=== PATIENT | male | born 1945 | race Caucasian/White ===

== ENCOUNTER 2016-09-09 22:30 | Emergency (ER) | payer OTHER ==
[2016-09-09 22:38] VITALS: BP 163/98; TEMP 98.6; BMI 23.6
--- NOTE | 2016-09-09 22:49 | ED.PDOC ---
General ED Provider: Dr. GHADA MOORE Chief Complaint: Foreign Body in Ear Stated Complaint: Part of the earing aid is stuck in the left ear, Time Seen by Physician: 22:50 Mode of Arrival: Walk-In Information Source: Patient Primary Care Provider: WANG GAITAN Nursing and Triage Documentation Reviewed and Agree: Yes EENT Complaint Exam - Ear Complaint/Exam Symptoms Are: Still present Timing: Constant Initial Severity: Mild Current Severity: Mild Character: Reports: Unable to describe Aggravating: Reports: Foreign body Alleviating: Reports: None Associated Signs and Symptoms: Denies: Ear trauma, Ear swelling, Discharge, Fever, Hearing loss, Bleeding, Sore throat, Headache, URI symptoms, Foreign body sensation, Rash, Pain to external ear, Pain to external face Ear Surgical History: None Differential Diagnoses: Foreign Body Review of Systems - Review Of Systems Constitutional: Reports: No symptoms Eyes: Reports: No symptoms Ears, Nose, Mouth, Throat: Reports: Ear pain Respiratory: Reports: No symptoms Cardiac: Reports: No symptoms GI: Reports: No symptoms : Reports: No symptoms Musculoskeletal: Reports: No symptoms Skin: Reports: No symptoms Neurological: Reports: No symptoms Endocrine: Reports: No symptoms Hematologic/Lymphatic: Reports: No symptoms All Other Systems: Reviewed and Negative Past Medical History - Past Medical History Previously Healthy: No Endocrine: Reports: Hyperthyroid Cardiovascular: Reports: None Respiratory: Reports: None Hematological: Reports: None Gastrointestinal: Reports: None Genitourinary: Reports: None Neuro/Psych: Reports: None Musculoskeletal: Reports: None Cancer: Reports: None - Surgical History General Surgical History: Reports: None - Family History Family History: Reports: None - Social History Smoking Status: Never smoker Hx Substance Use: No Alcohol Screening: None - Immunizations Tetanus Shot up to Date: Yes Physical Exam - Physical Exam Appearance: Well-appearing, No pain distress, Well-nourished Eyes: YAJAIRA, EOMI, Conjunctiva clear ENT: Ears normal (with aligator forecep the FB is removed), Nose normal, Oropharynx normal Respiratory: Airway patent, Breath sounds clear, Breath sounds equal, Respirations nonlabored Cardiovascular: RRR, Pulses normal, No rub, No murmur GI/: Soft, Nontender, No masses, Bowel sounds normal, No Organomegaly Musculoskeletal: Normal strength, ROM intact, No edema, No calf tenderness Skin: Warm, Dry, Normal color Neurological: Sensation intact, Motor intact, Reflexes intact, Cranial nerves intact, Alert, Oriented Psychiatric: Affect appropriate, Mood appropriate Critical Care Note - Critical Care Note Total Time (mins): 0 Course - Course Vital Signs: Temp Pulse Resp BP Pulse Ox 09/09/16 22:31 98.6 F 60 18 163/98 H 98 Departure - Departure Time of Disposition: 22:48 Disposition: HOME SELF-CARE Discharge Problem: Foreign body in ear Qualifiers: Encounter type: initial encounter Laterality: left Qualifier Code: (T16.2XXA) Foreign body in left ear, initial encounter Instructions: Ear Foreign Body (ED) Condition: Stable Pt referred to PMD for follow-up: Yes Additional Instructions: Have f/u with ENT Allergies/Adverse Reactions: Allergies No Known Allergies Allergy (Verified 09/09/16 22:37) Home Medications: Ambulatory Orders Aspirin [Aspirin Chewable] 81 mg PO DAILYWM 12/03/13 Lisinopril [Zestril] 40 mg PO BID 12/03/13 Disposition Discussed With: Patient
== END 2016-09-09 23:05 | disposition home or self-care (01) ==
LOC: ED 22:30
DX: T16.2XXA Foreign body in left ear, initial encounter (principal)
CPT/HCPCS: 99283

== ENCOUNTER 2016-10-08 11:37 | Outpatient (CLI) ==
--- NOTE | 2016-10-08 13:43 | DI ---
EXAM: PA and lateral views of the chest HISTORY: Bronchitis COMPARISON: Chest x-ray 11/08/2008 FINDINGS: The cardiomediastinal silhouette is normal. There is no pneumothorax or pleural effusion . There is no consolidation, nodule or mass. Calcified granuloma in the left lung is present. The re is unchanged hyperinflation. The osseous structures are stable. IMPRESSION: 1. No acute cardiopulmonary process or consolidation. 2. Hyperinflation consistent with chronic obstructive pulmonary disease.
== END 2016-10-08 11:38 | disposition home or self-care (01) ==
LOC: RAD 11:37
PROVIDERS: ATTEND Family Medicine
DX: J40 Bronchitis, not specified as acute or chronic (principal)

== ENCOUNTER 2016-11-22 10:48 | Emergency (ER) | payer OTHER ==
[2016-11-22 10:49] VITALS: BMI 23.6
[2016-11-22 10:52] VITALS: BP 158/94; TEMP 97.6
[2016-11-22] MEDS ORDERED: NITROSTAT SL PRN (10:52)
[2016-11-22] MEDS ORDERED: ASPIRIN CHEWABLE PO STA (10:53)
--- NOTE | 2016-11-22 10:54 | ED.PDOC ---
General ED Provider: Dr. MARITZA KRAUSE JR Chief Complaint: Chest Pain Stated Complaint: "Dileep"MIDSTERNAL CHEST PAIN RADIATING TO RIGHT JAW. WAS RIDING TRACTOR WHEN IT STARTED. NOW HAS HEADACHE. CHEST PAIN IS EASING UP NOW. WARM AND DIAPHORETIC [ End ] Time Seen by Physician: 10:54 Mode of Arrival: Police Information Source: Patient Exam Limitations: No limitations Primary Care Provider: WANG GAITAN Nursing and Triage Documentation Reviewed and Agree: No Review of Systems - Review Of Systems Constitutional: Reports: No symptoms Eyes: Reports: No symptoms Ears, Nose, Mouth, Throat: Reports: No symptoms Respiratory: Reports: No symptoms Cardiac: Reports: Chest pain (into right jaw) GI: Reports: No symptoms (tender left lower quadrant no constip) : Reports: No symptoms Musculoskeletal: Reports: No symptoms Skin: Reports: No symptoms Neurological: Reports: No symptoms Endocrine: Reports: No symptoms Hematologic/Lymphatic: Reports: No symptoms All Other Systems: Other Past Medical History - Past Medical History Previously Healthy: No Endocrine: Reports: Hyperthyroid Cardiovascular: Reports: Hypertension Respiratory: Reports: None Hematological: Reports: None Gastrointestinal: Reports: GERD Genitourinary: Reports: None Neuro/Psych: Reports: None Musculoskeletal: Reports: None Cancer: Reports: None Other Pertinent Past Medical History: prostate - Surgical History General Surgical History: Reports: None, Heart Cath (HEART CATH X 2 = NEGATIVE FINDINGS), Orthopedic (RIGHT LEG REPAIR WITH RODS AND PINS) - Family History Family History: Reports: None - Social History Smoking Status: Never smoker Hx Substance Use: No Alcohol Screening: None Physical Exam - Physical Exam Appearance: Well-appearing, Thin Pain Distress: Moderate Eyes: YAJAIRA, EOMI, Conjunctiva clear ENT: Ears normal, Nose normal, Oropharynx normal Neck: Supple Respiratory: Airway patent, Breath sounds clear, Breath sounds equal, Respirations nonlabored Cardiovascular: RRR, Pulses normal, No rub, No murmur GI/: Soft, No masses, Bowel sounds normal, No Organomegaly, Tender Musculoskeletal: Normal strength, ROM intact, No edema, No calf tenderness Skin: Warm, Dry, Normal color Neurological: Sensation intact, Motor intact, Reflexes intact, Cranial nerves intact, Alert, Oriented Psychiatric: Affect appropriate, Mood appropriate Interpretation - Radiology Interpretation Radiology Interpretation By: Radiologist Radiology Results: Negative Exam Interpreted: CXR - EKG Interpretation Time of EKG #1: 11:04 Rate: Normal Rhythm: Sinus Ectopy: None [place]: NL ST Segment: Normal Physician Notification - Case Discussed Physician Notified: lauri Time of Notification: 12:14 Critical Care Note - Critical Care Note Total Time (mins): 5 Course - Course Hematology/Chemistry: 11/22/16 11:00 11/22/16 11:00 Orders, Labs, Meds: Lab Review 11/22/16 11:00 WBC 6.53 RBC 4.25 L Hgb 13.4 L Hct 39.6 L MCV 93.2 MCH 31.5 H MCHC 33.8 RDW Coeff of [place]ij[place] 13.9 Plt Count 206 Immature Gran % (Auto) 0.3 Neut % (Auto) 64.1 Lymph % (Auto) 23.9 [place] % (Auto) 10.3 H Eos % (Auto) 1.1 Baso % (Auto) 0.3 Immature Gran # (Auto) 0.0 Neut # 4.2 Lymph # 1.6 [place] # 0.7 Eos # 0.1 Baso # 0.0 D-Dimer (Manual) 414.15 Sodium 141 Potassium 3.9 Chloride 109 H Carbon Dioxide 23 Anion Gap 12.9 BUN 15 Creatinine 1.14 H Estimated GFR (MDRD) 64.00 BUN/Creatinine Ratio 13.15 Glucose 80 L Lactic Acid 8.4 Calcium 9.6 Total Bilirubin 0.47 AST 16 ALT 15 Alkaline Phosphatase 55 L Total Creatine Kinase 91 Troponin I < 0.0100 B-Natriuretic Peptide 64 Total Protein 6.9 Albumin 3.9 Globulin 3.0 Albumin/Globulin Ratio 1.30 Amylase 93 Lipase 23 Procalcitonin < 0.05 Orders Category Date Time Status EKG-(ED ONLY) Stat CARDIO 11/22/16 10:52 Completed ED APPLY O2 .ONCE EMERGENCY 11/22/16 10:52 Active ED JORDAN WORKER APPLIED .ONCE EMERGENCY 11/22/16 10:52 Active ED IV/MEDIPORT/POWERPORT .ONCE EMERGENCY 11/22/16 10:52 Active AMYLASE Stat LAB 11/22/16 11:00 Completed B-TYPE NATRIURETIC PEPTIDE Stat LAB 11/22/16 11:00 Completed CBC W/ AUTO DIFF Stat LAB 11/22/16 11:00 Completed COMPREHENSIVE METABOLIC PANEL Stat LAB 11/22/16 11:00 Completed CREATINE KINASE Stat LAB 11/22/16 11:00 Completed D-DIMER Stat LAB 11/22/16 11:00 Completed LACTIC ACID Stat LAB 11/22/16 11:00 Completed LIPASE Stat LAB 11/22/16 11:00 Completed PROCALCITONIN Stat LAB 11/22/16 11:00 Completed TROPONIN I Stat LAB 11/22/16 11:00 Completed URINALYSIS C & S IF INDICATED Stat LAB 11/22/16 10:55 Uncollected 0.9 % Sodium Chloride [Saline Flush] MEDS 11/22/16 10:52 Active 1 syr IVF PRN PRN Aspirin [Aspirin Chewable] MEDS 11/22/16 10:53 Discontinued 324 mg PO ONCE STA Nitroglycerin [Nitrostat] MEDS 11/22/16 10:52 Active 0.4 mg SL Q5MIN X 3 DOSES PRN CHEST, 1V AP ONLY Stat RADS 11/22/16 10:52 Completed Medications Generic Name Dose Route Start Last Admin Trade Name Freq PRN Reason Stop Dose Admin Nitroglycerin 0.4 mg 11/22/16 10:52 11/22/16 11:00 Nitrostat SL 0.4 mg Q5MIN X 3 DOSES PRN Administration Chest Pain Sodium Chloride 1 syr 11/22/16 10:52 Saline Flush IVF PRN PRN To flush IV Discontinued Medications Generic Name Dose Route Start Last Admin Trade Name Freq PRN Reason Stop Dose Admin Aspirin 324 mg 11/22/16 10:53 11/22/16 10:59 Aspirin Chewable PO 11/22/16 10:54 324 mg ONCE STA Administration Vital Signs: Temp Pulse Resp BP Pulse Ox 11/22/16 10:49 97.6 F 80 18 158/94 H 98 VICKI Risk Score VICKI Risk Score: Risk Score Odds of by 30D 0 0.1 (0.1-0.2) 1 0.3 (0.2-0.3) 2 0.4 (0.3-0.5) 3 0.7 (0.6-0.9) 4 1.2 (1.0-1.5) 5 2.2 (1.9-2.6) 6 3.0 (2.5-3.6) 7 4.8 (3.8-6.1) Departure - Departure Time of Disposition: 12:13 Disposition: TSF SHORT-TRM HOSP Discharge Problem: Chest pain Instructions: Chest Pain (ED) Condition: Fair Pt referred to PMD for follow-up: Yes (transfer latter-day) Allergies/Adverse Reactions: Allergies No Known Allergies Allergy (Verified 09/09/16 22:37) Home Medications: Ambulatory Orders Aspirin [Aspirin Chewable] 81 mg PO DAILYWM 12/03/13 Lisinopril [Zestril] 20 mg PO DAILY 12/03/13 Amlodipine Besylate [Norvasc] 5 mg PO DAILY 11/22/16 Pantoprazole Sodium [Protonix] 40 mg PO QDAC 11/22/16
[2016-11-22 11:08] LABS: BASOPHILS % (AUTO) 0.3 % (0.0-3.0); EOSINOPHILS # (AUTO) 0.1 K/ul (0.0-0.7); EOSINOPHILS % (AUTO) 1.1 % (0.0-7.0); HEMATOCRIT 39.6 % (42.0-52.0); HEMOGLOBIN 13.4 g/dl (14.0-18.0); IMMATURE GRANULOCYTE % (AUTO) 0.3 % (0.0-5.0); LYMPHOCYTES # (AUTO) 1.6 K/uL (0.60-3.4); LYMPHOCYTES % (AUTO) 23.9 (10.0-50.0); MEAN CORPUSCULAR HEMOGLOBIN 31.5 pg (27.0-31.0); MEAN CORPUSCULAR HGB CONC 33.8 (31.8-35.4); MEAN CORPUSCULAR VOLUME 93.2 fl (80.0-94.0); MONOCYTES # (AUTO) 0.7 K/uL (0.4-2.0); MONOCYTES % (AUTO) 10.3 (0-10); NEUTROPHILS # (AUTO) 4.2 K/ul (2.0-6.9); NEUTROPHILS % (AUTO) 64.1; PLATELET COUNT 206 10^3/uL (140-440); RED BLOOD COUNT 4.25 10^6/ul (4.70-6.10); WHITE BLOOD COUNT 6.53 K/ul (4.2-10.2)
--- NOTE | 2016-11-22 11:08 | DI ---
EXAM: Chest one view, frontal view only. HISTORY: Chest pain. COMPARISON: 10/08/2016. FINDINGS: The heart size is normal. There is no pulmonary vascular congestion. The lungs are german r save for calcified granulomatous changes. No pleural effusion or pneumothorax is seen. No acute osseous abnormality is identified. Since the prior study, there has been no significant interval ch barrie. IMPRESSION: No acute cardiopulmonary process.
[2016-11-22 11:34] LABS: ALANINE AMINOTRANSFERASE 15 U/L (12-78); ALBUMIN 3.9 g/dL (3.4-5.0); ALKALINE PHOSPHATASE 55 U/L (56-119); AMYLASE 93 U/L (25-115); ANION GAP 12.9; ASPARTATE AMINO TRANSFERASE 16 U/L (15-37); BILIRUBIN,TOTAL 0.47 mg/dL (0.00-1.20); BLOOD UREA NITROGEN 15 mg/dL (7-18); BUN/CREATININE RATIO 13.15; CALCIUM 9.6 mg/dL (8.2-10.2); CARBON DIOXIDE 23 mmol/L (23-31); CHLORIDE 109 mmol/L (98-107); CREATINE KINASE 91 U/L; CREATININE 1.14 mg/dL (0.60-1.10); GLUCOSE 80 mg/dL (82-115); LIPASE 23 U/L (8-78); POTASSIUM 3.9 mmol/L (3.5-5.1); SODIUM 141 mmol/L (136-145); TOTAL PROTEIN 6.9 g/dL (5.8-8.1)
== END 2016-11-22 12:53 | disposition short-term general hospital (02) ==
LOC: ED 10:48
DX: R07.9 Chest pain, unspecified (principal); I10 Essential (primary) hypertension; E05.90 Thyrotoxicosis, unspecified without thyrotoxic crisis or storm; R51 Headache; Z79.899 Other long term (current) drug therapy
CPT/HCPCS: 36415; 80053; 82150; 82550; 83605; 83690; 83880; 84145; 84484; 85025; 85379; 93005; 93010; 99285

== ENCOUNTER 2016-11-22 12:52 | Outpatient (CLI) ==
[2016-11-22 10:49] VITALS: BMI 23.6
== END 2016-11-22 12:53 ==
LOC: AMBL 12:52
PROVIDERS: ATTEND Emergency Medicine
DX: R07.9 Chest pain, unspecified (principal)

== ENCOUNTER 2017-03-09 11:26 | Outpatient (CLI) ==
--- NOTE | 2017-03-09 12:02 | DI ---
EXAM: RIGHT KNEE. HISTORY: Chronic right knee pain. FINDINGS: Right knee three-view. No comparison. There are three stabilization screws superimposed over the proximal tibia. There is subtle deformity of the lateral tibial plateau suggesting prior i njury. 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 There is no acute fracture or visible rolo int effusion. Bone density appears mildly decreased. Soft tissues within normal limits. IMPRESSION: Postop and arthritic changes. No acute findings.
== END 2017-03-09 11:27 | disposition home or self-care (01) ==
LOC: RAD 11:26
PROVIDERS: ATTEND Family Medicine
DX: M25.561 Pain in right knee (principal); G89.29 Other chronic pain

== ENCOUNTER 2017-04-15 11:34 | Emergency (ER) ==
[2017-04-15 11:39] VITALS: BP 171/93; TEMP 98.8; BMI 22.8
[2017-04-15] MEDS ORDERED: NORCO 10-325 PO STA (12:28)
--- NOTE | 2017-04-15 13:05 | DI ---
EXAM: LEFT SHOULDER HISTORY: Injury, pain FINDINGS: Left shoulder three-view. Bone and joint structures are within normal limits. There is no joint dislocation or fracture identified. Bone density and soft tissues are unremarkable. IMPRESSION: Within normal limits.
--- NOTE | 2017-04-15 13:06 | DI ---
EXAM: Three views of the left elbow. History: Left elbow pain and trauma. Findings: No acute fracture or dislocation. No abnormal calcifications or radiopaque foreign bodies . Impression: No acute abnormality
--- NOTE | 2017-04-15 13:07 | DI ---
EXAM: LEFT HUMERUS, 2 VIEWS HISTORY: Fall, arm pain FINDINGS: Left humerus AP and lateral views. Bone and joint structures appear normal. No fracture or joint dislocation is seen. There is no significant arthritic change, bone density abnormality or soft tissue finding. IMPRESSION: No fracture or dislocation.
--- NOTE | 2017-04-15 13:18 | ED.PDOC ---
General ED Provider: Dr. BIENVENIDO RUSSELL Chief Complaint: Shoulder Pain/Injury Stated Complaint: shoulder pain Time Seen by Physician: 11:45 (fall 4 feet from ladder no neck or back pain) Mode of Arrival: Walk-In Information Source: Patient Exam Limitations: No limitations Primary Care Provider: WANG GAITAN Nursing and Triage Documentation Reviewed and Agree: Yes (no head injury) Trauma/Injury Complaint Exam - Head Injury Complaint/Exam Location of Pain: Reports: Other (shoulder , elbow pain no neck or back pain or injury) Mechanism of Injury: Reports: Trauma (fall 4 feet no neck pain) Onset/Duration: 1 hr Symptoms Are: Still present Initial Severity: Moderate Current Severity: Moderate (injury and pain limited to left upper ext only) Aggravating: Reports: None Alleviating: Reports: None Associated Signs and Symptoms: Denies: Confusion, Memory loss, Seizure, Epistaxis, Dental malocclusion, Neck pain, Nausea, Vomiting Loss of Consciousness: None Related History: Reports: Similar episode SDH Risk Factors: Present: Male Cervical Spine Injury Risk Factors: Present: None Related Surgical History: Reports: None Immobilization Removed Post Exam: No Head Injury Findings: Present: Normal findings Glascow Coma Scale (see protocol): 15 Focal Weakness: Present: None Focal Sensory Loss: Present: None Gait: Normal Gag Reflex Present: Yes Finger to Nose: Normal Babinski Sign: Negative Right, Negative Left Nexus Low Risk Criteria: No post-midline CS tender, No evidence of intoxicat., No Altered LOC, No focal neuro deficit, No distracting injuries Differential Diagnoses: Sprain, Strain Review of Systems - Review Of Systems Constitutional: Reports: No symptoms Eyes: Reports: No symptoms Ears, Nose, Mouth, Throat: Reports: No symptoms Respiratory: Reports: No symptoms Cardiac: Reports: No symptoms GI: Reports: No symptoms : Reports: No symptoms Musculoskeletal: Reports: Other (left shoulder pain) Skin: Reports: No symptoms Neurological: Reports: No symptoms Endocrine: Reports: No symptoms Hematologic/Lymphatic: Reports: No symptoms All Other Systems: Reviewed and Negative Past Medical History - Past Medical History Previously Healthy: No Endocrine: Reports: Hyperthyroid Cardiovascular: Reports: Hypertension Respiratory: Reports: None Hematological: Reports: None Gastrointestinal: Reports: GERD Genitourinary: Reports: None Neuro/Psych: Reports: None Musculoskeletal: Reports: None Cancer: Reports: None Other Pertinent Past Medical History: prostate - Surgical History General Surgical History: Reports: None, Heart Cath (HEART CATH X 2 = NEGATIVE FINDINGS), Orthopedic (RIGHT LEG REPAIR WITH RODS AND PINS) - Family History Family History: Reports: None - Social History Smoking Status: Never smoker Hx Substance Use: No Alcohol Screening: None Physical Exam - Physical Exam Appearance: Well-appearing, No pain distress, Well-nourished Eyes: YAJAIRA, EOMI, Conjunctiva clear ENT: Ears normal, Nose normal, Oropharynx normal Respiratory: Airway patent, Breath sounds clear, Breath sounds equal, Respirations nonlabored Cardiovascular: RRR, Pulses normal, No rub, No murmur GI/: Soft, Nontender, No masses, Bowel sounds normal, No Organomegaly Musculoskeletal: Normal strength, ROM intact, No edema, No calf tenderness Skin: Warm, Dry, Normal color Neurological: Sensation intact, Motor intact, Reflexes intact, Cranial nerves intact, Alert, Oriented Psychiatric: Affect appropriate, Mood appropriate Critical Care Note - Critical Care Note Total Time (mins): 0 Course - Course Orders, Labs, Meds: Orders Category Date Time Status Hydrocodone Bit/Acetaminophen [[place] 10-325] MEDS 04/15/17 12:28 Discontinued 1 tab PO ONCE STA ELBOW, LEFT MIN 3 VIEWS Stat RADS 04/15/17 12:32 Completed HUMERUS, LEFT 2VIEWS Stat RADS 04/15/17 12:32 Completed SHOULDER, LEFT MIN 2V Stat RADS 04/15/17 12:32 Completed Medications Discontinued Medications Generic Name Dose Route Start Last Admin Trade Name Freq PRN Reason Stop Dose Admin Acetaminophen/Hydrocodone Bitart 1 tab 04/15/17 12:28 [place] 10-325 PO 04/15/17 12:29 ONCE STA Vital Signs: Temp Pulse Resp BP Pulse Ox 04/15/17 11:35 98.8 F 60 20 171/93 H 98 Departure - Departure Time of Disposition: 13:19 Disposition: HOME SELF-CARE Discharge Problem: Shoulder pain, Injury of shoulder region Rotator cuff injury Qualifiers: Encounter type: initial encounter Instructions: Shoulder Sprain (ED), Rotator Cuff Injury (ED) Condition: Good Pt referred to PMD for follow-up: Yes Additional Instructions: Please call your Family Physician as soon as possible to schedule a follow-up appointment. Allergies/Adverse Reactions: Allergies No Known Allergies Allergy (Verified 04/15/17 11:39) Home Medications: Ambulatory Orders Aspirin [Aspirin Chewable] 81 mg PO DAILYWM 12/03/13 Lisinopril [Zestril] 5 mg PO DAILY 12/03/13 Pantoprazole Sodium [Protonix] 40 mg PO QDAC 11/22/16 Meloxicam [Mobic] 7.5 mg PO DAILY 04/15/17
== END 2017-04-15 13:33 | disposition home or self-care (01) ==
LOC: ED 11:34
DX: M25.512 Pain in left shoulder (principal); M25.522 Pain in left elbow; W11.XXXA Fall on and from ladder, initial encounter
CPT/HCPCS: 99283

== ENCOUNTER 2018-11-13 20:39 | Emergency (ER) | payer OTHER ==
[2018-11-13 20:42] VITALS: BP 135/87; TEMP 98.2; BMI 22.6
[2018-11-13] MEDS ORDERED: SODIUM CHLORIDE 1,000 ML IV STA ×2 (20:51)
[2018-11-13] MEDS ORDERED: ZOFRAN 4 MG/2 ML IVP STA (20:51)
--- NOTE | 2018-11-13 21:24 | CT ---
EXAM: CT of the abdomen and pelvis without contrast. HISTORY: Abdominal pain. PROCEDURE: Contiguous axial CT images of the abdomen and pelvis without contrast with coronal and sa gittal reformats. FINDINGS: The liver is normal in appearance. There is a gallstone in the gallbladder. The gallbladd er is within normal limits in size. The pancreas, spleen and adrenal glands are normal in appearance . There are nonobstructive calcifications in both kidneys. There are bilateral renal cysts. The ab dominal aorta is within normal limits in diameter. There are atherosclerotic calcifications in the a bdominal aorta and bilateral iliac arteries. The appendix is normal in appearance. There is diverti culosis of the colon with no evidence of diverticulitis. No free fluid or free air in the abdomen or pelvis. The bladder is adequately filled and normal in appearance. The seminal vesicles and prosta te gland are unremarkable. There are degenerative changes in the spine. Impression: Cholelithiasis as described. Nonobstructive bilateral nephrolithiasis. Diverticulosis of the colon. Atherosclerotic vascular disease.
--- NOTE | 2018-11-13 21:56 | ED.PDOC ---
General ED Provider: Dr. WANG GAITAN-ER Chief Complaint: Weakness Stated Complaint: milad had diarrhea and felt weak Time Seen by Physician: 20:40 Mode of Arrival: Walk-In Information Source: Patient Exam Limitations: No limitations Primary Care Provider: WANG GAITAN Nursing and Triage Documentation Reviewed and Agree: Yes Does patient meet sepsis criteria?: No System Inflammatory Response Syndrome: Not Applicable Sepsis Protocol: For patient's 13 years and over: Temp is 96.8 and below OR 101 and greater Pulse >90 BPM Resp >20/minute Acutely Altered Mental Status Are patient's symptoms suggestive of a new infection, such as: -Pneumonia -Skin, Soft Tissue -Endocarditis -UTI -Bone, Joint Infection -Implantable Device -Acute Abdominal Infection -Wound Infection -Meningitis -Blood Stream Catheter Infection -Unknown GI Complaint Exam - Abdominal Pain Complaint/Exam Onset: Gradual Duration: 3 days Symptoms Are: Still present Timing: Intermittent Initial Severity: Mild Current Severity: Mild Location of Pain: Diffuse Radiates To: Reports: Back Character: Reports: Dull, Aching Aggravating: Reports: Food Alleviating: Reports: Spontaneous resolution Associated Signs and Symptoms: Reports: Nausea. Denies: Diaphoresis, Fever, Cough, Chest pain, Dizziness, Back pain, Constipation, Blood in stool, Dysuria, Urinary frequency, Decreased urine output, Decreased appetite, Discharge, Vomiting, Diarrhea, Decreased activity Abdominal Findings: Present: Rebound tenderness Differential Diagnoses: Constipation, Pancreatitis Review of Systems - Review Of Systems Constitutional: Reports: No symptoms Eyes: Reports: No symptoms Ears, Nose, Mouth, Throat: Reports: No symptoms Respiratory: Reports: No symptoms Cardiac: Reports: No symptoms GI: Reports: Diarrhea, Nausea : Reports: No symptoms Musculoskeletal: Reports: No symptoms Skin: Reports: No symptoms Neurological: Reports: No symptoms Endocrine: Reports: No symptoms Hematologic/Lymphatic: Reports: No symptoms All Other Systems: Reviewed and Negative Past Medical History - Past Medical History Previously Healthy: No Endocrine: Reports: Hyperthyroid Cardiovascular: Reports: Hypertension Respiratory: Reports: None Hematological: Reports: None Gastrointestinal: Reports: GERD Genitourinary: Reports: None Neuro/Psych: Reports: None Musculoskeletal: Reports: None Cancer: Reports: None Other Pertinent Past Medical History: prostate - Surgical History General Surgical History: Reports: None, Heart Cath (HEART CATH X 2 = NEGATIVE FINDINGS), Orthopedic (RIGHT LEG REPAIR WITH RODS AND PINS) - Family History Family History: Reports: None - Social History Smoking Status: Never smoker Hx Substance Use: No Alcohol Screening: None Physical Exam - Physical Exam Appearance: Well-appearing, No pain distress, Well-nourished Pain Distress: Mild Eyes: YAJAIRA, EOMI, Conjunctiva clear ENT: Ears normal, Nose normal, Oropharynx normal Neck: Supple Respiratory: Airway patent, Breath sounds clear, Breath sounds equal, Respirations nonlabored Cardiovascular: RRR, Pulses normal, No rub, No murmur GI/: Soft, Nontender, No masses, Bowel sounds normal, No Organomegaly Musculoskeletal: Normal strength, ROM intact, No edema, No calf tenderness Skin: Warm, Dry, Normal color Neurological: Sensation intact, Motor intact, Reflexes intact, Cranial nerves intact, Alert, Oriented Psychiatric: Affect appropriate, Mood appropriate Interpretation - Radiology Interpretation Radiology Interpretation By: Radiologist Radiology Results: Positive Exam Interpreted: CT Scan Critical Care Note - Critical Care Note Total Time (mins): 0 Course - Course Hematology/Chemistry: 11/13/18 21:10 11/13/18 21:10 Orders, Labs, Meds: Lab Review 11/13/18 11/13/18 21:10 21:10 WBC 5.98 RBC 4.02 L Hgb 12.5 L Hct 37.6 L MCV 93.5 MCH 31.1 H MCHC 33.2 RDW Coeff of [place]ij[place] 13.9 Plt Count 184 Immature Gran % (Auto) 0.2 Neut % (Auto) 69.3 Lymph % (Auto) 16.4 [place] % (Auto) 12.4 H Eos % (Auto) 1.5 Baso % (Auto) 0.2 Immature Gran # (Auto) 0.0 Neut # (Auto) 4.2 Lymph # (Auto) 1.0 [place] # (Auto) 0.7 Eos # (Auto) 0.1 Baso # (Auto) 0.0 Sodium 133.2 L Potassium 3.97 Chloride 100.5 Carbon Dioxide 23.5 Anion Gap 13.17 BUN 24.8 H Creatinine 1.33 H Estimated GFR (MDRD) 53.00 BUN/Creatinine Ratio 18.64 Glucose 108.3 H Calcium 9.01 Total Bilirubin 0.48 AST 28.3 ALT 17.6 Alkaline Phosphatase 62.9 Total Protein 6.69 Albumin 4.47 Globulin 2.22 Albumin/Globulin Ratio 2.01 Amylase 118.6 H Lipase 67.3 Orders Category Date Time Status ED IV/MEDIPORT/POWERPORT .ONCE EMERGENCY 11/13/18 20:51 Active AMYLASE Stat LAB 11/13/18 21:10 Completed CBC W/ AUTO DIFF Stat LAB 11/13/18 21:10 Completed COMPREHENSIVE METABOLIC PANEL Stat LAB 11/13/18 21:10 Completed LIPASE Stat LAB 11/13/18 21:10 Completed URINALYSIS C & S IF INDICATED Stat LAB 11/13/18 20:51 Uncollected 0.9 % Sodium Chloride [Saline Flush] MEDS 11/13/18 20:50 Ordered 1 syr IVF PRN PRN Ondansetron HCl/Pf [Zofran 4 mg/2 ml] MEDS 11/13/18 20:51 Discontinued 4 mg IVP ONCE STA Sodium Chloride 0.9% [Sodium Chloride] 1,000 ml MEDS 11/13/18 20:[address] ABDOMEN/PELVIS WO CONTRAST Stat RADS 11/13/18 20:51 Completed Medications Generic Name Dose Route Start Last Admin Trade Name Freq PRN Reason Stop Dose Admin Sodium Chloride 1 syr 11/13/18 20:50 11/13/18 21:20 Saline Flush IVF 1 syr PRN PRN Administration To flush IV Discontinued Medications Generic Name Dose Route Start Last Admin Trade Name Freq PRN Reason Stop Dose Admin Sodium Chloride 1,000 mls @ 1,000 mls/hr 11/13/18 20:51 11/13/18 21:20 Sodium Chloride IV 11/13/18 21:50 1,000 mls/hr BOLUS STA Administration Ondansetron HCl 4 mg 11/13/18 20:51 11/13/18 21:20 Zofran 4 Mg/2 Ml IVP 11/13/18 20:52 4 mg ONCE STA Administration Vital Signs: Temp Pulse Resp BP Pulse Ox 11/13/18 20:39 98.2 F 69 20 135/87 98 Departure - Departure Time of Disposition: 21:55 Disposition: HOME SELF-CARE Discharge Problem: Gallstones Instructions: Gallstones (ED), Low Fat Diet (ED) Condition: Good Pt referred to PMD for follow-up: Yes IPMP verified?: No Additional Instructions: low fat diet---zofran for nausea--f/u with me prn Allergies/Adverse Reactions: Allergies No Known Allergies Allergy (Verified 11/13/18 20:42) Home Medications: Ambulatory Orders Aspirin [Aspirin Chewable] 81 mg PO DAILYWM 12/03/13 Lisinopril [Zestril] 5 mg PO DAILY 12/03/13 Pantoprazole Sodium [Protonix] 40 mg PO QDAC 11/22/16 Meloxicam [Mobic] 7.5 mg PO DAILY 04/15/17 Disposition Discussed With: Patient
== END 2018-11-13 22:34 | disposition home or self-care (01) ==
LOC: ED 20:39
DX: K80.80 Other cholelithiasis without obstruction (principal); I10 Essential (primary) hypertension; E05.90 Thyrotoxicosis, unspecified without thyrotoxic crisis or storm; R53.1 Weakness; R19.7 Diarrhea, unspecified
CPT/HCPCS: 36415; 80053; 82150; 83690; 85025; 96360; 96375; 99284